=== PATIENT | male | born 1945 | race Caucasian/White ===

== ENCOUNTER 2016-10-23 11:01 | Emergency (ER) | payer MEDICARE, BC ==
[~2016-10-23 11:01] MED LIST: ASPIRIN325 MG PO; COQ1050 MG PO; DOK100 MG PO; LEVOFLOXACIN500 MG PO; LIPITOR10 MG PO; METRONIDAZOLE500 MG PO; VIBRAMYCIN100 MG PO
== END 2016-10-23 11:59 | disposition home or self-care (01) ==
LOC: ER 11:01
DX: S39.012A Strain of muscle, fascia and tendon of lower back, initial encounter (principal); X50.9XXA Other and unspecified overexertion or strenuous movements or postures, initial encounter; I25.10 Atherosclerotic heart disease of native coronary artery without angina pectoris; Z95.1 Presence of aortocoronary bypass graft; Z95.5 Presence of coronary angioplasty implant and graft; Z79.82 Long term (current) use of aspirin; Z79.899 Other long term (current) drug therapy; Z88.5 Allergy status to narcotic agent
CPT/HCPCS: 96372; 99282-25; 99283